=== PATIENT | female | born 1985 | race American Indian/Alaskan Native ===

== ENCOUNTER 2017-01-29 20:37 | Inpatient (IN) | payer MEDICAID ==
[2017-01-29] MEDS ORDERED: Ondansetron 4 MG/2 ML SDV IV PRN (21:53)
[2017-01-29] MEDS ORDERED: Lactated Ringers 500 ML IV ONE (21:53)
[2017-01-29] MEDS ORDERED: Carboprost Tromethamine 250 MCG/1 ML Amp IM PRN (21:53)
[2017-01-29] MEDS ORDERED: Misoprostol 400 MCG (4 X 100 MCG TAB) RECTAL PRN (21:53)
[2017-01-29] MEDS ORDERED: Methylergonovine 0.2 MG/1 ML Amp IM PRN (21:53)
[2017-01-29] MEDS ORDERED: Lidocaine 1% 30 ML SDV INJECT PRN (21:53)
[2017-01-29] MEDS ORDERED: Oxytocin/Normal Saline 30 UNIT/500 ML BAG IV SCH (22:00)
[2017-01-29] MEDS: Lactated Ringers 1,000 ML IV SCH (22:00)
[2017-01-30] MEDS ORDERED: fentaNYL 100 MCG/2 ML SDV ONE (00:20)
[2017-01-30] MEDS: Lactated Ringers 1,000 ML IV SCH ×4 (01:08→08:17)
[2017-01-30] MEDS ORDERED: cefTRIAXone 1 GM in Sodium Chloride 0.9% 50 ML IV SCH (04:00)
[2017-01-30] MEDS ORDERED: cefTRIAXone 1 GM AdvVial IV ONE (04:33)
[2017-01-30] MEDS ORDERED: Sodium Chloride 0.9% 50 ML ONE (04:34)
[2017-01-30] MEDS ORDERED: Oxytocin/Normal Saline 30 UNIT/500 ML BAG ONE (04:56)
[2017-01-30] MEDS ORDERED: Methylergonovine 0.2 MG/1 ML Amp ONE (04:56)
[2017-01-30] MEDS ORDERED: Carboprost Tromethamine 250 MCG/1 ML Amp ONE (04:56)
[2017-01-30] MEDS ORDERED: Misoprostol 400 MCG (4 X 100 MCG TAB) ONE (04:56)
[2017-01-30] MEDS ORDERED: Misoprostol 400 MCG (4 X 100 MCG TAB) RECTAL ONE (05:06)
[2017-01-30] MEDS ORDERED: Albuterol 6.7 GM Inhaler INH ONE (05:11)
[2017-01-30] MEDS ORDERED: cefTRIAXone 1 GM in Sodium Chloride 0.9% 50 ML IV ONE (05:23)
[2017-01-30] MEDS: Sodium Chloride 0.9% 10 ML Syringe FLUSH PRN ×2 (05:30→22:32)
[2017-01-30] MEDS ORDERED: ePHEDrine 50 MG/ML SDV IVPUSH PRN (05:38)
[2017-01-30] MEDS ORDERED: Naloxone 2 MG/2 ML Syringe IVPUSH PRN (05:38)
[2017-01-30] MEDS ORDERED: Measles, Mumps & Rubella Vaccine 0.5 ML SDV SUBCUT ONE (05:38)
[2017-01-30] MEDS ORDERED: Acetaminophen/oxyCODONE 325-5 MG Tab PO PRN (05:38)
[2017-01-30] MEDS ORDERED: Simethicone 80 MG Tab.Chew PO PRN (05:38)
[2017-01-30] MEDS ORDERED: diphenhydrAMINE 50 MG/ML SDV IVPUSH PRN (05:38)
[2017-01-30] MEDS: Docusate Sodium 100 MG Cap PO PRN ×2 (08:55→19:25)
[2017-01-30] MEDS: Acetaminophen 325 MG Tab PO PRN ×2 (08:55→16:53)
[2017-01-30] MEDS: Prenatal Multivitamin with Calcium/Folic Acid/Iron Tab PO SCH (08:55)
[2017-01-30] MEDS: Methylergonovine 0.2 MG Tab PO SCH ×3 (08:55→21:18)
[2017-01-30] MEDS: Ferrous Sulfate 325 MG Tab PO SCH ×2 (08:55→11:56)
[2017-01-30] MEDS ORDERED: fentaNYL 100 MCG/2 ML SDV ITHECAL ONE (09:59)
--- NOTE | 2017-01-30 10:00 | HP ---
PATIENT IDENTIFICATION: Charlotte Bates is a 31-year-old, G7, P6-0-0-6, intrauterine at 36 and 6/7th weeks by chart review, little further along based on her 22 and 1/7th week ultrasound and based on her 33 and 6/7th week ultrasound, her due date is in 2 days from now, who presents with contractions. HISTORY OF PRESENT ILLNESS: The patient has had limited/insufficient care, couple visits with Maite Lemos and one with Dr. Hurt on 01/17/2017. She describes having contractions starting this morning earlier around 7:00 a.m., took a nap and then thereafter they started getting worse. She feels them in the lower abdomen and radiating to the back associated with abdominal tightening and severe enough that she is breathing through them. Nothing seems to make them better. Time has made them worse. She denies any spotting, bleeding, or leaking. To put this in context, she has history of fast labors and deliveries saying that most of her labor and deliveries are less than 3 hours on average. She also has a hep C antibody positive status and GBS was negative on 01/17/2017. Records were called for reviewed as below and supplemented by patient history. OB HISTORY: 1. 07/14/2001, male, 7 pounds 4 ounces, delivered at term after 3 hours vaginally. 2. 06/02/2002, female, 6 pounds 7 ounces, term, delivered vaginally after 3 hours. 3. 04/08/2003, delivered a female, 7 pounds, term, after 1 hour vaginally. 4. 06/27/2004, delivered female, 7 pounds 1 ounces, 41 and 3/7th weeks, after 7 hours of labor. 5. 05/24/2006, delivered a female, 7 pounds 1 ounces, at term vaginally. 6. 04/26/2007, delivered male, 8 pounds 15 ounces, between 36 and 37 weeks with intrathecal. ANTEPARTUM LABS: ABO blood type O positive, negative antibody. Rubella nonimmune. RPR nonreactive. Hepatitis B surface antigen positive, hep C antibody negative, HIV, GC, chlamydia, wet prep had some BV. A 1-hour GTT was not done. Hemoglobin on 08/18/2016, was 11.4. ALLERGIES: None. MEDICATIONS: None. PAST MEDICAL/PAST SURGICAL HISTORY: Remarkable for cholecystectomy in 2012, that was laparoscopic. 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 She also has history of anxiety and tobacco dependence. SOCIAL HISTORY: The patient lives in [facility] with her significant other and Richard Montero junior and his 2 children. They have been together for over 2+ years. Her 6 children currently are living with her prior significant other (father of her first 6 children). She denies smoking tobacco, alcohol, or drug use. FAMILY HISTORY: Negative for defects, anesthesia problems, or bleeding problems. Other family history remarkable for hypertension in father. Maternal grandfather with cancer and father also having diabetes. Maternal grandmother is a twin. REVIEW OF SYSTEMS: Quickly reviewed and otherwise felt to be noncontributory. OBJECTIVE: Vital Signs: Blood pressure 132/70, heart rate 63. The patient feels afebrile. Respiratory rate is between 12 and 16. Appearance: Female, appears her stated age, acting appropriate for age, nontoxic in appearance, breathing through her contractions, but answering questions appropriately in between. HEENT: Head is atraumatic. EOMs intact. PERRLA. No scleral icterus. No otorhinorrhea. Mucous membranes are moist. Neck: No obvious tenderness. Lungs: Clear to auscultation bilaterally. No increased work of breathing. Heart: S1 and S2. Regular rate and rhythm. Abdomen: Gravid. Braden's indeterminate. Nontender. Nondistended. Bowel sounds positive. No other organomegaly, pulsatile masses, or obvious hernias. No rebound, rigidity, or guarding. : Vaginal exam done by nurse initially revealed to be 3 cm with unsure presentation and high with cervix tilted off to the right. Extremities: Trace pedal edema. Deep tendon reflexes are 2 to 3/4 bilaterally and symmetric in the lower extremities. Psych: Mood and affect are congruent. Judgment and insight are intact. Skin: Without cyanosis, clubbing, or jaundice. heart tones baseline around the 130s. Tocometer reveals contractions every 1.5 to 4 minutes apart. Ultrasound done, reviewed with tech and by my eyes gives an estimated gestational age of 37 and 6/7th weeks with an estimated weight of 3465 g, (7 pounds 10 ounces) with a vertex presentation. ASSESSMENT: 1. Intrauterine 36 and 6/7th weeks by chart review. Confirmed with 22 and 1/7th week ultrasound and at today's ultrasound being at 37 and 6/7th weeks. 2. Contractions with active labor. The patient has advancing cervical dilation and contractions. 3. History of fast labors and deliveries making this patient not a transfer candidate due to her history as noted as above with her stating her average labors and deliveries less than 3 hours. 4. Limited/insufficient care. 5. Hepatitis C antibody positive. 6. Rubella nonimmune. 7. Group B Streptococcus negative on 01/17/2017. 8. 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 9. G7, P6-0-0-6. PLAN: The patient will be admitted. IV has been started. Labs will be drawn. We will also add a BIO-RAD with limited/insufficient care. Admit her to a room and follow clinically and closely thereafter. The patient understands and agrees with the above treatment plan. Please see orders for further details as well. [facility] /[id number]
--- NOTE | 2017-01-30 10:24 | PN ---
DATE: 01/30/2017 SUBJECTIVE: The patient is comfortable status post intrathecal. Nurse has been holding monitor on to detect heart tones. OBJECTIVE: Vital Signs: Blood pressure 124/64, heart rate 60, O2 sats 100% non- rebreather mask is on. General: The patient is lying on her left side upon my entry into the room. Vaginal exam thereafter reveals her to be 4 cm, 75% effaced, -1 to -2 station, vertex suspected, bulging bag of water with artificial rupture of membranes done yielding copious amounts of clear fluid. scalp electrode was then applied after discussion with the patient. heart tones with a baseline around 100 to 110 was noted. Tocometer reveals one reading contractions what appears to be every couple minutes with the patient comfortable with them. ASSESSMENT AND PLAN: Now intrauterine 37 weeks, admitted with contractions in active labor with limited insufficient care, history of fast labors and delivery, making her not a transfer candidate with group B Streptococcus negative status as well as her being rubella nonimmune and hep C antibody positive. The patient subsequently underwent the intrathecal as she was having pain and at her request and now status post artificial rupture of membranes and scalp electrode. We will continue to monitor and maternal status closely. The patient understands and agrees with the above treatment plan. [facility] /[id number]
--- NOTE | 2017-01-30 11:00 | OR ---
DATE: 01/30/2017 PREOPERATIVE DIAGNOSES: 1. Intrauterine 37 weeks by chart review, confirmed with 22 and / week ultrasound. 2. Active labor upon admit. 3. Limited/insufficient care. 4. History of fast labors and deliveries. 5. Not a transfer candidate due to the above. 6. Hep C antibody positive. 7. GBS negative on 01/17/2017. 8. ASCUS with high-risk HPV back in 04/2016. 9. Rubella nonimmune. 10.G7, P6-0-0-6. POSTOPERATIVE DIAGNOSES: SAME-delivered and : 1. Uterine inversion with prolapse, replaced immediately after diagnosis - suspected. 2. Prolonged 3rd stage of labor. 3. Retained placenta, requiring bimanual exam with uterine curettage with fingers. 4. hemorrhage with EBL 1250 mL. 5. Requirement for methargen, Cytotec, and Pitocin. 6. The patient was brought to the operating room for further evaluation and management due to her uterine inversion with prolapse, potential need for further surgery and other evaluations. 7. Difficulty delivering anterior shoulder, requiring Bebe maneuver with potential for shoulder dystocia lasting less than 20 seconds. 8. right hand by left cheek. PROCEDURE PERFORMED: NST on 01/29/2017, followed by procedures on 01/30/2017: Artificial rupture of membranes, FSE, spontaneous vaginal delivery complicated by uterine inversion with prolapse. Attempted to be replaced immediately after diagnosis with suspected replacement and then subsequently bimanual massage with uterine curettage with fingers and evaluation under general anesthesia with the patient relaxed. RADAR TECHNICIAN: Dr. Dempsey was asked to be present in the operating room. ANESTHESIA/ANALGESIA: The patient did receive an intrathecal in the 1st stage of labor. She underwent general anesthesia for her surgery and evaluation and management. EBL: 1250 mL. FINDINGS: 1. Male, Apgars 8 and 9, weighing 3250 g. 2. Uterine inversion with prolapse noted during the 3rd stage of labor. SUMMARY OF EVENTS: The patient is a 31-year-old G7, P6-0-0-6 intrauterine at 36 and 6/7th weeks on date of admission, underwent an NST, presented in active labor with contractions. She subsequently had cervical change, underwent artificial rupture of membranes followed by FSE due to difficulty detecting heart tones externally. She had an intrathecal in the 1st stage of labor. She was found to be complete and I was called to the room. I donned sterile gown and gloves, and with patient pushing, vertex was delivered in SARA presentation. There was difficulty delivering anterior shoulder, Bebe maneuver ensued and suprapubic pressure was being prepped for and subsequently anterior shoulder delivered followed by rest of the without difficulty. Right hand was noted to be by left cheek. Mouth and nares were suctioned. Cord was doubly clamped and cut, and was resuscitated on mother's abdomen. Then, approximately 10 mL cord blood obtained for labs. Placenta was then attempted to be delivered with gentle cord traction and fundal massage and during this uterine inversion was noted with prolapse. My left hand was then immediately attempted to resolve this prolapse and inserted vaginally up to the fundus and superiorly. It felt as if this had been resolved, but as I removed my fingers inferiorly, I could feel the uterus attempting to invert again. Subsequently, my hand was left in the fundal area with placenta intact and stat OR crew and Dr. Dempsey were called. I did discuss with the patient and her male partner. Risks, benefits, alternatives, complications, potential surgery, further evaluation and management of uterine inversion and prolapse with potential need for further surgery, possible hysterectomy, extensive blood loss, need for blood transfusions. Verbal and written consent were obtained. Questions were answered. Another IV was started, 4 units of packed red blood cells were called for, for type and cross match and Rocephin 1 g IV was given. Pitocin was never started during this time period. While waiting for OR, examiner's left hand was left at the uterine fundal region placing pressure in a bimanual fashion. Subsequently, the patient was brought back to the operating room when operating room crew was ready and available. Dr. Dempsey was already ready in the operating room waiting. OR START TIME TO THE ROOM: At 0455 hours. STOP TIME: At 0515 hours. POSTOPERATIVE DIAGNOSES: 1. Uterine inversion with prolapse - resolved. 2. Status post bimanual removal retained placenta. 3. Prolonged 3rd stage of labor. 4. Retained placenta, requiring uterine curettage with fingers. 5. hemorrhage with an EBL of 1250 mL. DESCRIPTION OF PROCEDURE IN DETAIL: After proper consent was obtained and OR crew was ready and available as above, the patient was brought to the operating room while my hand was inserted along the fundal region in a bimanual fashion. Subsequently, general anesthesia was induced. Uterine fundus was pressed more superiorly. Uterine inversion resolved. Subsequently placenta was delivered and there appeared to be some placental fragments that did not appear to be delivered with placenta upon review with Dr. Dempsey. Subsequently, bimanual exam with finger uterine curettage was done removing some blood clot and suspected placental fragments. As uterine inversion resolved, Pitocin was called for as well as 800 mcg Cytotec and 0.2 mg of methargen IM, which were given. Please see OR notes for further details in regard to this. hemorrhage with an EBL of 1250 mL was noted. After the above procedures were done, fundal massage ensued and minimal blood loss was noted with minimal trickle noted coming from the vaginal area. Dr. Dempsey did do a bimanual pass and finger uterine curettage after I did to re-evaluate and felt that it was satisfactory. Subsequently MOUNTAIN GUIDE was giving albuterol and following clinically and closely. Please see his notes for further details for management of the patient. My stop time was at approximately 0515 hours. Placenta will be sent to pathology. Male partner has been updated in terms of evaluation, management, and treatment plans and currently we will follow clinically and closely. [facility] /[id number] MTDD
--- NOTE | 2017-01-30 11:06 | OBOUT ---
DATE: 01/29/2017 DATE AND TIME OF NST: Date: 01/29/2017. Time: 0260-5660 hours. REASON FOR NST: 1. Intrauterine at 36 and 6/7th weeks by chart review. 2. Contractions with active labor. 3. Limited/insufficient care. 4. History of fast labors and deliveries. 5. Not a transfer candidate. 6. Hep C antibody positive. 7. GBS negative. 8. ASCUS with high-risk HPV. 9. Rubella nonimmune. 10.G7, P6-0-0-6. NST INTERPRETATION: During this time period, heart tone baseline is approximately 120 and there are at least two 15 x 15 beat per minute accelerations, making this strip reactive. It is also noted to be reassuring. Tocometer reveals potential of 4 contractions, which the patient feels. ASSESSMENT: 1. NST-reactive and reassuring. 2. Tocometer with contractions. PLAN: With this NST, vaginal exam was done, reveals her to be 3+ cm, 75% effaced, -1 to - 2 station, vertex suspected, bulging bag of water felt, and this was on the patient's right. We will move the patient to a regular room, follow clinically and closely thereafter. Plans were discussed with her and her male partner. They understand and agree with the above treatment plan. [facility] /[id number]
[2017-01-30] MEDS ORDERED: Midazolam 1 MG/ML 2 ML SDV IV ONE (13:29)
[2017-01-30] MEDS: Ibuprofen 800 MG Tab PO PRN ×2 (14:38→23:22)
[2017-01-30] MEDS ORDERED: Carboprost Tromethamine 250 MCG/1 ML Amp IM ONE (14:40)
[2017-01-30] MEDS ORDERED: Methylergonovine 0.2 MG/1 ML Amp IM ONE (14:40)
[2017-01-30] MEDS: Acetaminophen/oxyCODONE 325-5 MG Tab PO PRN ×2 (19:26→23:23)
[2017-01-30] MEDS: Morphine 2 MG/ML Syringe IVPUSH PRN (22:31)
[2017-01-31] MEDS: Sodium Chloride 0.9% 10 ML Syringe FLUSH PRN ×2 (04:09→06:05)
[2017-01-31] MEDS: cefTRIAXone 1 GM in Sodium Chloride 0.9% 50 ML IV SCH (04:10)
[2017-01-31] MEDS: Acetaminophen/oxyCODONE 325-5 MG Tab PO PRN ×2 (04:13→19:30)
[2017-01-31] MEDS: Morphine 2 MG/ML Syringe IVPUSH PRN (06:06)
[2017-01-31] MEDS: Ferrous Sulfate 325 MG Tab PO SCH (08:40)
[2017-01-31] MEDS: Docusate Sodium 100 MG Cap PO PRN (08:40)
[2017-01-31] MEDS: Ibuprofen 800 MG Tab PO PRN ×2 (08:40→17:11)
[2017-01-31] MEDS: Prenatal Multivitamin with Calcium/Folic Acid/Iron Tab PO SCH (08:40)
[2017-02-01] MEDS: Ibuprofen 800 MG Tab PO PRN (02:07)
[2017-02-01] MEDS: Acetaminophen/oxyCODONE 325-5 MG Tab PO PRN ×3 (02:52→12:31)
[2017-02-01] MEDS: cefTRIAXone 1 GM in Sodium Chloride 0.9% 50 ML IV SCH (04:17)
[2017-02-01 08:59] VITALS: BP 118/59
[2017-02-01] MEDS: Prenatal Multivitamin with Calcium/Folic Acid/Iron Tab PO SCH (09:06)
[2017-02-01] MEDS: Ferrous Sulfate 325 MG Tab PO SCH (09:06)
--- NOTE | 2017-02-01 12:41 | PN ---
DATE: 01/31/2017 day #1. SUBJECTIVE: The patient is tolerating some POs. She has urinated, passed flatus, and states she needs something for pain. OBJECTIVE: Vital Signs: Updated and listed in chart. Reveal temperature 98.4, heart rate 68, blood pressure 107/62. Lungs: Clear to auscultation bilaterally. Heart: S1 and S2 regular rate and rhythm. Abdomen: Firm uterus around the umbilicus with some soreness with palpation. No rebound, rigidity, or guarding. Extremities: No peripheral edema. ASSESSMENT AND PLAN: day #1, status post spontaneous vaginal delivery complicated by uterine version with prolapse, please see other notes for further details. Anemia of acute blood loss requiring 2 units of packed red blood cells. Labs were done after blood transfusion and were stable. The patient is currently asymptomatic. We will continue to follow clinically and closely. The patient understands and agrees with the above treatment plan. Possible discharge tomorrow. [facility] /[id number]
[2017-02-01] MEDS ORDERED: Albuterol 6.7 GM Inhaler INH ONE (13:29)
[2017-02-01] MEDS ORDERED: fentaNYL 100 MCG/2 ML SDV IV ONE (13:29)
[2017-02-01] MEDS ORDERED: Succinylcholine 200 MG/10 ML MDV IV ONE (13:29)
[2017-02-01] MEDS ORDERED: Oxytocin/Normal Saline 30 UNIT/500 ML BAG IV ONE (13:29)
[2017-02-01] MEDS ORDERED: Propofol 200 MG/20 ML SDV IV ONE (13:29)
--- NOTE | 2017-02-02 11:51 | DISCH ---
ADMITTING DIAGNOSES: 1. Intrauterine 36 and 6/7 weeks by chart review, confirmed with 22 and 1/7 weeks' ultrasound. 2. Contractions with active labor. 3. Limited/insufficient care. 4. History of fast labors and deliveries. 5. Not a transfer candidate. 6. Hep C antibody positive. 7. GBS negative, 01/17/2017. 8. 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 9. Rubella nonimmune. 10.G7, P6-0-0-6. DISCHARGE DIAGNOSES: 1. Intrauterine 36 and 6/7 weeks by chart review, confirmed with 22 and 1/7 weeks' ultrasound - delivered. 2. Contractions with active labor. 3. Limited/insufficient care. 4. History of fast labors and deliveries. 5. Not a transfer candidate. 6. Hep C antibody positive. 7. GBS negative, 01/17/2017. 8. 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 9. Rubella nonimmune. 10.G7, P6-0-0-6. 11.Uterine inversion with prolapse - requiring general anesthesia for a complete replacement. 12.Prolonged third stage of labor. 13.Retained placenta, requiring bimanual exam and finger uterine curettage of the uterus. 14. hemorrhage with EBL of 1250 mL. 15.Uterine atony, requiring Methergine, Cytotec, and Pitocin. 16.Difficulty delivering anterior shoulder, requiring Bebe maneuver, less than 20 seconds. PROCEDURE PERFORMED: NST, artificial rupture of membranes, scalp electrode, and subsequently spontaneous vaginal delivery complicated by uterine inversion with prolapse, suspected to be replaced immediately after delivery, requiring general anesthesia to complete replacement followed by bimanual exam with finger uterine curettage of the uterus to remove retained placenta. Date of procedure and NST on 01/29. The rest of procedure performed on 01/30/2017. HISTORY OF PRESENT ILLNESS: Please see H and P. SUMMARY HOSPITAL COURSE: The patient was admitted on the above date with the above diagnoses, underwent the above procedures, then went on to have a spontaneous vaginal delivery yielding a male, Apgars of 8 and 9, weighing 3250 g complicated by difficulty delivering the anterior shoulder, requiring Bebe maneuver, less than 20 seconds, and then subsequently uterine inversion with prolapse during the third stage of labor. Please see delivery note for further details. This was attempted to be replaced immediately after diagnosis, was felt to be replaced, but seemed to want to reoccur; therefore, examiner's hand was left in a bimanual fashion until general anesthesia was induced, and subsequently, she had a retained placenta with prolonged third stage of labor, and required general anesthesia to reduce the uterine inversion with prolapse. Please see operative note for further details. She did receive two units packed red blood cells due to the significant amount of bleeding and potential need for continued bleeding thereafter. day #1, please see progress note. Postoperative day #2, date of discharge, the patient was tolerating p.o., ambulating, urinating, passing flatus, and requesting discharge. PHYSICAL EXAMINATION: Vital Signs: Temperature 98.4, heart rate 57, blood pressure 118/59, respiratory rate is 20. Lungs: Clear to auscultation bilaterally. Heart: S1, S2. Regular rate and rhythm. Abdomen: Firm uterus around the umbilicus. Extremities: No peripheral edema. No calf pain. DISCHARGE LABS: Reveal white cell count 7.7, hemoglobin 11.7, platelets 166. The patient does state that she was sore with examination, requesting pain pills, we will give as below. CONDITION ON DISCHARGE COMPARED TO CONDITION ON ADMISSION: Improved. DISCHARGE INSTRUCTIONS: 1. Diet as tolerated. 2. Activity, no lifting more than 20 pounds. No sit-ups, straining, and pelvic rest for the next 6 weeks with immediate return to fertility discussed with the patient. 3. Reasons to return or go to the emergency room were discussed with the patient in detail including, but not limited to, temperature greater than 100.4, foul-smelling discharge, red, hot, tender breasts, or Increased vaginal bleeding. DISCHARGE MEDICATIONS: 1. [id number] Tylenol or ibuprofen for pain. 2. Percocet 5/325 one to two q.6 hours p.r.n. #20. No refills. Discussed the use of this medication, adverse and wanted effect, as well as precautions with driving. Reason to return or go to the emergency room in regard to her was also discussed with the patient. The importance of followup and ramifications of not doing so were discussed. Please see discharge paperwork for further details as well. Did discuss appointment with her on 02/05/2017. [facility] /[id number]
== END 2017-02-01 13:30 | disposition home or self-care (01) | DRG 767 ==
LOC: DL.OBCHECK 20:37 → DL.OB 21:53 → INTOOBSV 22:12 → UNDOADMOB 22:12 → OBSVTOIN 22:12 → DL.MS 02-01 06:15
PROVIDERS: ADMIT Family Medicine; ATTEND Family Medicine
PROC: 10E0XZZ Delivery of Products of Conception, External Approach (ICD-10-PCS; principal; 2017-01-30)
PROC: 10D17ZZ Extraction of Products of Conception, Retained, Via Natural or Artificial Opening (ICD-10-PCS; 2017-01-30)
PROC: 10907ZC Drainage of Amniotic Fluid, Therapeutic from Products of Conception, Via Natural or Artificial Opening (ICD-10-PCS; 2017-01-30)
PROC: 10H073Z Insertion of Monitoring Electrode into Products of Conception, Via Natural or Artificial Opening (ICD-10-PCS; 2017-01-30)
PROC: 4A1H7CZ Monitoring of Products of Conception, Cardiac Rate, Via Natural or Artificial Opening (ICD-10-PCS; 2017-01-30)
DX: O98.82 Other maternal infectious and parasitic diseases complicating childbirth (principal); O72.0 Third-stage hemorrhage; O63.9 Long labor, unspecified; O71.2 Postpartum inversion of uterus; O99.02 Anemia complicating childbirth; O66.0 Obstructed labor due to shoulder dystocia; B19.20 Unspecified viral hepatitis C without hepatic coma; D64.9 Anemia, unspecified; Z3A.37 37 weeks gestation of pregnancy; Z37.0 Single live birth
CPT/HCPCS: 00940; 01967; 36415; 36430; 76815; 80305; 85027; 86850; 86900; 86901; 86920; 86922; 90707; A9270-GY; J0330; J0696; J2210; J2250; J2270; J2405; J2590; J2704; J3010; J7050; J7120; P9016

== ENCOUNTER 2017-02-08 00:54 | Emergency (ER) | payer MEDICAID ==
[2017-02-08 01:29] LABS: CHLORIDE,CL 103 mmol/L (101-111); SODIUM,NA 138 mmol/L (135-145)
[2017-02-08 01:30] LABS: ACETAMINOPHEN < 10.0
[2017-02-08] MEDS ORDERED: Piperacillin/Tazobactam 3.375 GM in Sodium Chloride 0.9% 100 ML IV ONE (01:33)
[2017-02-08] MEDS ORDERED: Iopamidol 612 MG/ML 100 ML Bottle IVPUSH ONE (01:42)
[2017-02-08] MEDS ORDERED: Rocuronium 50 MG/5 ML Vial ONE (01:49)
[2017-02-08 04:59] VITALS: BP 91/56
--- NOTE | 2017-02-08 06:23 | EDM.PDOC ---
ED HPI GENERAL MEDICAL PROBLEM - General Chief Complaint: Neurological Problem Stated Complaint: IN BY AMBULANCE Time Seen by Provider: 02/08/17 01:00 Source of Information: Reports: EMS, Family History Limitations: Reports: Altered Mental Status - History of Present Illness INITIAL COMMENTS - FREE TEXT/NARRATIVE: ED via [facility] . Originating 911 call that patient had overdosed on Percocet. Patint unresponsive with assisted bag breathing. NS IV enroute, 3 mg Narcan given without change, Teeth clenched jaw tight, EMS gave 2mg Valium. Family report patient didnt feel well during day and seemed detached and not paying attention. Patient recent one week postpastum, Vaginal delivery with complication of introverted uterus. Patient given Rx #20 for percocet on . Boyfriend noted hx of meth use unsure when last. Unsure if ETOH ingestion Limited hx from Mother, On arrival of boyfriend some additional information obtained. Reported patient c/o not feeling well during day with fever, muscle aches and headache, Noted they went to bed early and he woke when she was incontinent of urine, had "lost alot of blood" vaginally. and was "jerking and shaking. Estimated at least 15minutes between onset and time he was able to get his mother and for her to call 911. EMS indicate at least 45minutes of seizure activity. before arrival at hospital. 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: Musculoskeletal History: Reports: Amputation, Fracture, Other (See Below) Other Musculoskeletal History: 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, Neurological History: Reports: None Psychiatric History: Reports: Anxiety Endocrine/Metabolic History: Reports: None Hematologic History: Reports: Anemia Immunologic History: Reports: None Oncologic (Cancer) History: Reports: None Dermatologic History: Reports: None - Infectious Disease History Infectious Disease History: Reports: Chicken Pox - Past Surgical History Cardiovascular Surgical History: Reports: None Respiratory Surgical History: Reports: None GI Surgical History: Reports: Cholecystectomy Female Surgical History: Reports: Breast Biopsy Endocrine Surgical History: Reports: None Neurological Surgical History: Reports: None Musculoskeletal Surgical History: Reports: Other (See Below) Other Musculoskeletal Surgeries/Procedures:: ankle hardware Oncologic Surgical History: Reports: None Dermatological Surgical History: Reports: None Social & Family History - Family History Family Medical History: Noncontributory - Tobacco Use Smoking Status *Q: Former Smoker Years of Tobacco use: 2 Used Tobacco, but Quit: Yes Month Tobacco Last Used: 2013 Second Hand Smoke Exposure: No - Caffeine Use Caffeine Use: Reports: Soda, Tea - Alcohol Use Days Per Week of Alcohol Use: 1 Number of Drinks Per Day: 6 Total Drinks Per Week: 6 - Recreational Drug Use Recreational Drug Use: No ED ROS GENERAL - Review of Systems Review Of Systems: ROS reveals no pertinent complaints other than HPI. - Physical Exam Exam: See Below Exam Limited By: Altered Mental Status General Appearance: Obtunded, Obese Eye Exam: Bilateral Eye: Other (2mm bilaterally on arrival sluggish) Ears: Normal External Exam, Normal TMs Nose: Normal Inspection Throat/Mouth: Normal Inspection Head Exam: Atraumatic, Normocephalic, Other. No: Scalp Lacerations, Scalp Swelling, Scalp Hematoma Neck: Normal Inspection Respiratory/Chest: No Respiratory Distress Cardiovascular: Normal Peripheral Pulses, Regular Rate, Rhythm, No Edema, No Murmur GI/Abdominal: Normal Bowel Sounds, Distended, Abnormal Bowel Sounds (Female) Exam: Normal External Exam, Enlarged Uterus, Vaginal Bleeding ( bright red, few clots EBL 300ml) Rectal (Female) Exam: Other (incontinent stool) Neuro Exam (Abbreviated): Unresponsive, Other (no response to pain) Back Exam: Normal Inspection Extremities: Normal Inspection, Normal Range of Motion Skin Exam: Warm, Dry, Intact, Normal Color, Tattoo(s) Comments: GCS 4 Course - Vital Signs Last Recorded V/S: Last Vital Signs Temp 98.1 F 02/08/17 03:00 Pulse 108 H 02/08/17 03:00 Resp 16 02/08/17 03:00 BP 91/56 L 02/08/17 03:00 Pulse Ox 100 02/08/17 03:00 - Orders/Labs/Meds Orders: Active Orders 24 hr Category Date Time Status EKG 12 Lead [EKG Documentation Completion] [RC] STAT Care 02/08/17 01:45 Active Chest 1V Frontal [CR] Routine Exams 02/08/17 Taken Chest Abdomen Pelvis w Cont [CT] Routine Exams 02/08/17 Ordered Chest Abdomen Pelvis w Cont [CT] Routine Exams 02/08/17 Taken Head wo Cont [CT] Routine Exams 02/08/17 Taken CULTURE BLOOD [BC] Routine Lab 02/08/17 01:38 Received CULTURE BLOOD [BC] Routine Lab 02/08/17 01:42 Received PACKED CELLS [RED BLOOD CELLS LP] [BBK] Stat Lab 02/08/17 02:50 Results TYPE AND SCREEN [BBK] Stat Lab 02/08/17 02:50 Results Labs: Laboratory Tests 02/08/17 02/08/17 02/08/17 Range/Units 01:00 01:00 01:00 WBC 24.8 H (5.0-10.0) 10^3/uL RBC 5.04 (4.2-5.4) 10^6/uL Hgb 14.8 (12.0-16.0) g/dL Hct 45.5 (37.0-47.0) % MCV 90.3 (80-100) fL MCH 29.4 (27.0-34.0) pg MCHC 32.5 L (33.0-35.0) g/dL Plt Count 350 (150-450) 10^3/uL Neut % (Auto) 84.1 H (42.2-75.2) % Lymph % (Auto) 12.4 L (20.5-50.1) % [place] % (Auto) 3.2 (2-8) % Eos % (Auto) 0.1 L (1.0-3.0) % Baso % (Auto) 0.2 (0.0-1.0) % Add Manual Diff Yes Neutrophils % (Manual) 80 % Lymphocytes % (Manual) 19 % Monocytes % (Manual) 1 % PT (9.0-12.0) SEC INR (0.9-1.2) Sodium 138 (135-145) mmol/L Potassium 3.4 L (3.6-5.0) mmol/L Chloride 103 (101-111) mmol/L Carbon Dioxide 22.0 (21.0-31.0) mmol/L Anion Gap 16.4 BUN 10 (7-18) mg/dL Creatinine 0.6 (0.6-1.3) mg/dL Est Cr Clr Drug Dosing TNP Estimated GFR (MDRD) > 60 BUN/Creatinine Ratio 16.66 Glucose 246 H (74-105) mg/dL Lactic Acid 3.3 H (0.5-2.2) mmol/L Calcium 8.7 (8.4-10.2) mg/dl Magnesium 1.7 L (1.8-2.5) mg/dL Total Bilirubin 0.6 (0.2-1.0) mg/dL AST 38 (10-42) IU/L ALT 33 (10-60) IU/L Alkaline Phosphatase 89 (42-121) IU/L Total Protein 6.8 (6.7-8.2) g/dl Albumin 3.8 (3.2-5.5) g/dl Globulin 3.0 Albumin/Globulin Ratio 1.27 Amylase 85 (28-100) U/L Lipase 27 (22-51) U/L Urine Color (YELLOW) Urine Appearance (CLEAR) Urine pH (5.0-9.0) Ur Specific [place] (1.005-1.030) Urine Protein (NEGATIVE) Urine Glucose (UA) (NEGATIVE) Urine Ketones (NEGATIVE) Urine Occult Blood (NEGATIVE) Urine Nitrite (NEGATIVE) Urine Bilirubin (NEGATIVE) Urine Urobilinogen (0.2-1.0) mg/dL Ur Leukocyte Esterase (NEGATIVE) Urine RBC /HPF Urine WBC (0-5/HPF) /HPF Ur Epithelial Cells /HPF Amorphous Sediment (0/HPF) /HPF Urine Bacteria (0-FEW/HPF) /HPF Salicylates < 4.0 Urine Opiates Screen (NEGATIVE) Ur Oxycodone Screen (NEGATIVE) Urine Methadone Screen (NEGATIVE) Acetaminophen < 10.0 Ur Barbiturates Screen (NEGATIVE) U Tricyclic Antidepress (NEGATIVE) Ur Phencyclidine Scrn (NEGATIVE) Ur Amphetamine Screen (NEGATIVE) U Methamphetamines Scrn (NEGATIVE) Urine MDMA Screen (NEGATIVE) U Benzodiazepines Scrn (NEGATIVE) Urine Cocaine Screen (NEGATIVE) U Marijuana (THC) Screen (NEGATIVE) Ethyl Alcohol < 5 mg/dL Blood Type Gel Antibody Screen Crossmatch 02/08/17 02/08/17 02/08/17 Range/Units 01:00 01:00 01:00 WBC (5.0-10.0) 10^3/uL RBC (4.2-5.4) 10^6/uL Hgb (12.0-16.0) g/dL Hct (37.0-47.0) % MCV (80-100) fL MCH (27.0-34.0) pg MCHC (33.0-35.0) g/dL Plt Count (150-450) 10^3/uL Neut % (Auto) (42.2-75.2) % Lymph % (Auto) (20.5-50.1) % [place] % (Auto) (2-8) % Eos % (Auto) (1.0-3.0) % Baso % (Auto) (0.0-1.0) % Add Manual Diff Neutrophils % (Manual) % Lymphocytes % (Manual) % Monocytes % (Manual) % PT 9.8 (9.0-12.0) SEC INR 1.0 (0.9-1.2) Sodium (135-145) mmol/L Potassium (3.6-5.0) mmol/L Chloride (101-111) mmol/L Carbon Dioxide (21.0-31.0) mmol/L Anion Gap BUN (7-18) mg/dL Creatinine (0.6-1.3) mg/dL Est Cr Clr Drug Dosing Estimated GFR (MDRD) BUN/Creatinine Ratio Glucose (74-105) mg/dL Lactic Acid (0.5-2.2) mmol/L Calcium (8.4-10.2) mg/dl Magnesium (1.8-2.5) mg/dL Total Bilirubin (0.2-1.0) mg/dL AST (10-42) IU/L ALT (10-60) IU/L Alkaline Phosphatase (42-121) IU/L Total Protein (6.7-8.2) g/dl Albumin (3.2-5.5) g/dl Globulin Albumin/Globulin Ratio Amylase (28-100) U/L Lipase (22-51) U/L Urine Color Yellow (YELLOW) Urine Appearance Slightly cloudy (CLEAR) Urine pH 6.0 (5.0-9.0) Ur Specific [place] 1.025 (1.005-1.030) Urine Protein >=300 H (NEGATIVE) Urine Glucose (UA) 250 H (NEGATIVE) Urine Ketones Negative (NEGATIVE) Urine Occult Blood Moderate H (NEGATIVE) Urine Nitrite Negative (NEGATIVE) Urine Bilirubin Negative (NEGATIVE) Urine Urobilinogen 0.2 (0.2-1.0) mg/dL Ur Leukocyte Esterase Negative (NEGATIVE) Urine RBC 0-5 /HPF Urine WBC 0-5 (0-5/HPF) /HPF Ur Epithelial Cells Moderate H /HPF Amorphous Sediment Moderate H (0/HPF) /HPF Urine Bacteria Many H (0-FEW/HPF) /HPF Salicylates Urine Opiates Screen Negative (NEGATIVE) Ur Oxycodone Screen Negative (NEGATIVE) Urine Methadone Screen Negative (NEGATIVE) Acetaminophen Ur Barbiturates Screen Negative (NEGATIVE) U Tricyclic Antidepress Negative (NEGATIVE) Ur Phencyclidine Scrn Negative (NEGATIVE) Ur Amphetamine Screen Positive H (NEGATIVE) U Methamphetamines Scrn Positive H (NEGATIVE) Urine MDMA Screen Negative (NEGATIVE) U Benzodiazepines Scrn Negative (NEGATIVE) Urine Cocaine Screen Negative (NEGATIVE) U Marijuana (THC) Screen Negative (NEGATIVE) Ethyl Alcohol mg/dL Blood Type Gel Antibody Screen Crossmatch 02/08/17 02/08/17 Range/Units 02:50 02:50 WBC (5.0-10.0) 10^3/uL RBC (4.2-5.4) 10^6/uL Hgb 13.0 (12.0-16.0) g/dL Hct 39.8 (37.0-47.0) % MCV (80-100) fL MCH (27.0-34.0) pg MCHC (33.0-35.0) g/dL Plt Count (150-450) 10^3/uL Neut % (Auto) (42.2-75.2) % Lymph % (Auto) (20.5-50.1) % [place] % (Auto) (2-8) % Eos % (Auto) (1.0-3.0) % Baso % (Auto) (0.0-1.0) % Add Manual Diff Neutrophils % (Manual) % Lymphocytes % (Manual) % Monocytes % (Manual) % PT (9.0-12.0) SEC INR (0.9-1.2) Sodium (135-145) mmol/L Potassium (3.6-5.0) mmol/L Chloride (101-111) mmol/L Carbon Dioxide (21.0-31.0) mmol/L Anion Gap BUN (7-18) mg/dL Creatinine (0.6-1.3) mg/dL Est Cr Clr Drug Dosing Estimated GFR (MDRD) BUN/Creatinine Ratio Glucose (74-105) mg/dL Lactic Acid (0.5-2.2) mmol/L Calcium (8.4-10.2) mg/dl Magnesium (1.8-2.5) mg/dL Total Bilirubin (0.2-1.0) mg/dL AST (10-42) IU/L ALT (10-60) IU/L Alkaline Phosphatase (42-121) IU/L Total Protein (6.7-8.2) g/dl Albumin (3.2-5.5) g/dl Globulin Albumin/Globulin Ratio Amylase (28-100) U/L Lipase (22-51) U/L Urine Color (YELLOW) Urine Appearance (CLEAR) Urine pH (5.0-9.0) Ur Specific [place] (1.005-1.030) Urine Protein (NEGATIVE) Urine Glucose (UA) (NEGATIVE) Urine Ketones (NEGATIVE) Urine Occult Blood (NEGATIVE) Urine Nitrite (NEGATIVE) Urine Bilirubin (NEGATIVE) Urine Urobilinogen (0.2-1.0) mg/dL Ur Leukocyte Esterase (NEGATIVE) Urine RBC /HPF Urine WBC (0-5/HPF) /HPF Ur Epithelial Cells /HPF Amorphous Sediment (0/HPF) /HPF Urine Bacteria (0-FEW/HPF) /HPF Salicylates Urine Opiates Screen (NEGATIVE) Ur Oxycodone Screen (NEGATIVE) Urine Methadone Screen (NEGATIVE) Acetaminophen Ur Barbiturates Screen (NEGATIVE) U Tricyclic Antidepress (NEGATIVE) Ur Phencyclidine Scrn (NEGATIVE) Ur Amphetamine Screen (NEGATIVE) U Methamphetamines Scrn (NEGATIVE) Urine MDMA Screen (NEGATIVE) U Benzodiazepines Scrn (NEGATIVE) Urine Cocaine Screen (NEGATIVE) U Marijuana (THC) Screen (NEGATIVE) Ethyl Alcohol mg/dL Blood Type O POSITIVE Gel Antibody Screen Negative Crossmatch See Detail Meds: Medications Discontinued Medications Generic Name Dose Route Start Last Admin Trade Name Freq PRN Reason Stop Dose Admin Diazepam Confirm 02/08/17 00:59 02/08/17 03:25 Valium Administered 02/08/17 01:00 Not Given Dose 10 mg .ROUTE .STK-MED ONE Diazepam 2 mg 02/08/17 01:00 02/08/17 01:01 Valium IVPUSH 02/08/17 01:01 2 mg ONETIME ONE Administration Magnesium Sulfate/Dextrose 1 100 mls @ 100 mls/hr 02/08/17 01:19 02/08/17 01: 19 gm/ Premix IV 02/08/17 02:18 100 mls/hr ONETIME ONE Administration Magnesium Sulfate/Dextrose Confirm 02/08/17 01:19 02/08/17 03:25 Magnesium 1 Gm In D5w 100 Ml Administered 02/08/17 01:20 Not Given Dose 100 mls @ as directed .ROUTE .STK-MED ONE Vancomycin HCl 1 gm/ Sodium 250 mls @ 167 mls/hr 02/08/17 01:33 02/08/17 01: 41 Chloride IV 02/08/17 03:02 167 mls/hr ONETIME ONE Administration Piperacillin Sod/Tazobactam 100 mls @ 200 mls/hr 02/08/17 01:33 02/08/17 02: 11 Sod 3.375 gm/ Sodium Chloride IV 02/08/17 02:02 200 mls/hr ONETIME ONE Administration Iopamidol 100 ml 02/08/17 01:42 Isovue-300 (61%) IVPUSH 02/08/17 01:43 ONETIME ONE Rocuronium [place] Confirm 02/08/17 01:49 Zemuron Administered 02/08/17 01:50 Dose 150 mg .ROUTE .STK-MED ONE - Radiology Interpretation Free Text/Narrative:: CXR bilateral pneumonia Head CT large subarachnoid bleed with 8mm midline shift Abd, Large uterus, probalbe, hematoma - Re-Assessments/Exams Free Text/Narrative Re-Assessment/Exam: 02/08/17 Anesthesia and RT here, Patient suctioned small amount of yellow frothy emesis in mouth. ET tube placed per DIRECTOR TALENT. Labs ABG obtained, CXR. IV Ns infusing, patient generalized light shaking ocassional posturing appearance left upper extremity. Valium givin with improvement ABG's drawn with no response to pain. [facility] [place] [facility] of [facility] management. Dr. Alina Large clot from vaginal vault with bright red bleeding, uterus boggy improving with massage. Vital 131/79 HR 113, temp 99.3 0140 Abx initiated with WBC 24.8. Change in pupil reaction 3mm R fixed, 2mm on left 0150 stabilized at present for CT, accompanied by RT, anesthesia, and nursing 0210 results large bleed with midline shift, family here, mother notified of results. 0210 [facility] flight crew arrival, assumed care 0220left pupil 5 fixed, slow sluggish reaction to right at 4mmBP labile, decreasing after fentanyl. required blood, additional fluid. Levophed drip prior to transfer, Departure - Departure Time of Disposition: 03:30 Disposition: DC/Tfer to [facility] 02 Condition: Critical Clinical Impression: Substance abuse, Subarachnoid bleed, complication, Status epilepticus Sepsis Qualifiers: Sepsis type: puerperal sepsis Qualified Code(s): O85 - Puerperal sepsis - Discharge Information Forms: ED Department Discharge - My Orders Last 24 Hours: My Active Orders 02/08/17 Chest 1V Frontal [CR] Routine Chest Abdomen Pelvis w Cont [CT] Routine Chest Abdomen Pelvis w Cont [CT] Routine Head wo Cont [CT] Routine 02/08/17 01:38 CULTURE BLOOD [BC] Routine 02/08/17 01:42 CULTURE BLOOD [BC] Routine 02/08/17 01:45 EKG 12 Lead [EKG Documentation Completion] [RC] STAT 02/08/17 02:50 PACKED CELLS [RED BLOOD CELLS LP] [BBK] Stat TYPE AND SCREEN [BBK] Stat - Assessment/Plan Last 24 Hours: My Active Orders 02/08/17 Chest 1V Frontal [CR] Routine Chest Abdomen Pelvis w Cont [CT] Routine Chest Abdomen Pelvis w Cont [CT] Routine Head wo Cont [CT] Routine 02/08/17 01:38 CULTURE BLOOD [BC] Routine 02/08/17 01:42 CULTURE BLOOD [BC] Routine 02/08/17 01:45 EKG 12 Lead [EKG Documentation Completion] [RC] STAT 02/08/17 02:50 PACKED CELLS [RED BLOOD CELLS LP] [BBK] Stat TYPE AND SCREEN [BBK] Stat
--- NOTE | 2017-02-08 11:45 | PCM.SN ---
- Free Text/Narrative Note: Late entry note: Called by E.R. at around 00:45 Feb to attend to this patient. Upon arrival at around 01:00, patient unresponsive, with adequate bag valve mask ventilations in progress - SPO2 on monitor 97-98%. I gave patient Succinylcholine, 140mg, and then intubated. 1 pass, grade 1 view, 4 Mac used, ETT to 22cm at lips secured in place. Positive color change with colorimetric ETCO2 detector, and positive, equal bilateral breath sounds as assessed by E.R. provider Delilah Raygoza. Direct ETCO2 monitoring showed ETCO2 high 30's, low 40' s. Around 10 minutes after Succinylcholine given, pt started moving, so 50mg Rocuronium given. CXR taken and showed ETT just slightly past the [place] to the Right mainstem, so ETT pulled back to 20 CM at lips and taped in place. Breath sounds re-evaluated and positive, equal bilateral breath sounds noted with no sounds over epigastrum, and ETCO2 still in high 30's, low 40's. Prior to intubation, SPO2 in mid to high 90's, and B/P slightly elevated - around 160' s/90's. After intubation, pt's SPO2 remained in high 90's (97-99%) and B/P remained around the same 160's/90's. See E.R. flow sheet for more data. After intubation, and readjustment of ETT, Pt transferred to CT. After CT completed , pt showed some more movement, and while awaiting transport, gave patient 50 more mg of Rocuronium (approximately 01:45). Flight crew in around 02:15, and care transferred to them at that time after report given.
[2017-02-08] MEDS ORDERED: Rocuronium 50 MG/5 ML Vial IV ONE (16:26)
[2017-02-08] MEDS ORDERED: Succinylcholine 200 MG/10 ML MDV IV ONE (16:26)
[2017-02-12 14:01] LABS: O2 DELIVERY DEVICE RESUSCITATION BAG
[2017-02-12 14:02] LABS: BICARBONATE,ARTERIAL 22.8 mmol/L (22-26); O2 SATURATION ARTERIAL 98 % (95-100); PCO2 ARTERIAL 64 mmHg (35-45); PO2 ARTERIAL 140 mmHg (70-100)
[2017-02-12 14:03] LABS: ALLEN TEST pos; BASE EXCESS ARTERIAL -7 mmol/L ((-2)-(+3)); O2 FLOW RATE 15
[2017-02-12 14:09] LABS: O2 DELIVERY DEVICE RESUSCITATION BAG; O2 SATURATION ARTERIAL 100 % (95-100); PCO2 ARTERIAL 40 mmHg (35-45); PO2 ARTERIAL 196 mmHg (70-100)
[2017-02-12 14:10] LABS: ALLEN TEST pos; BASE EXCESS ARTERIAL -5 mmol/L ((-2)-(+3)); BICARBONATE,ARTERIAL 20.3 mmol/L (22-26); O2 FLOW RATE 15
--- NOTE | 2017-02-13 10:02 | EKG ---
02/08/2017- AMY GIANG - EKG per my reading shows rapid narrow complex tachycardia with diffuse ST depression. [facility] /[id number]
== END 2017-02-08 03:10 ==
LOC: DL.ED 00:54
DX: O85 Puerperal sepsis (principal); F19.10 Other psychoactive substance abuse, uncomplicated; I60.9 Nontraumatic subarachnoid hemorrhage, unspecified; Z79.899 Other long term (current) drug therapy; Z86.2 Personal history of diseases of the blood and blood-forming organs and certain disorders involving the immune mechanism; Z90.49 Acquired absence of other specified parts of digestive tract; Z87.891 Personal history of nicotine dependence
CPT/HCPCS: 31500; 36415; 36430; 70450; 71010; 71260; 74177; 80053; 80305; 81001; 82150; 83605; 83690; 83735; 85014; 85018; 85025; 85610; 86850; 86900; 86901; 86920; 86922; 87040; 93005; 96365; 96367; 96368; 96375; 99291; 99292; G0480; J0330; J2543; J3360; J3370; J3475; J7050; P9016; Q9967; 36600; 82803